=== PATIENT | female | born 1950 | race Caucasian/White ===

== ENCOUNTER 2023-03-13 12:05 | Outpatient (CLI) | payer OTHER, SELFPAY | END 2023-03-13 12:06 | disposition home or self-care (01) | LOC: NFLDREF 03-19 17:40 | PROVIDERS: Visit Provider Nurse Practitioner Family | DX: R30.0 Dysuria (principal); N39.0 Urinary tract infection, site not specified; N30.01 Acute cystitis with hematuria | CPT/HCPCS: 87086 ==